=== PATIENT | female | born 1960 | race Hispanic/Latino ===

== ENCOUNTER → 2018-07-18 09:58 | Outpatient (CLI) | payer MEDICAID, SELFPAY ==
--- NOTE | 2018-07-18 | DI.RAD.S_ITS ---
PROCEDURE: XR CHEST 2V INDICATIONS: COUGH TECHNIQUE: 2 views of the chest were acquired. COMPARISON: [facility], , CHEST 2 VIEW, 01/04/2010, 9:20. FINDINGS: Surgical changes and devices: None. Lungs and pleura: Lungs are clear. No pleural effusions or pneumothorax. Mediastinum: Mediastinal contours are normal. Heart size is normal. Bones and chest wall: No suspicious bony abnormalities. Soft tissues appear unremarkable. IMPRESSION: No acute cardiopulmonary disease. Dictated by: Shona Balbuena M.D. on 07/18/2018 at 10:18 Approved by: Shona Balbuena M.D. on 07/18/2018 at 10:18
== END ==
PROVIDERS: PCP Family Medicine; Visit Provider Family Medicine
DX: R05 Cough (principal)
CPT/HCPCS: 71046

== ENCOUNTER 2022-07-31 14:25 | Emergency (ER) | payer MEDICAID, SELFPAY ==
[2022-07-31 14:30] VITALS: BP 198/95; PULSE 77; RESP 18; TEMP 37.2; O2SAT 99; BMI 31.1
--- NOTE | 2022-07-31 15:34 | ED_ITS ---
HPI - Animal Bite <Jasmin Torres PA-C - Last Filed: 07/31/22 16:08> General Chief Complaint: Animal Bite Stated Complaint: bit by a dog in the face Time Seen by Provider: 07/31/22 14:33 Source: patient Mode of arrival: Ambulatory History of Present Illness HPI narrative: This is a 62-year-old female who presents with concern for a dog bite to her face. Patient states that she was at a friend's place and her friend has a very large dog that comes up nearly to her waist, she had met the dog last night and had no issues with it today it was in a sling her back and she turned around and bent down towards it and it suddenly reached up and bit her face. She states it has very large jaws and enclosed her face 1 time, she had quite a bit of bleeding and someone ran next door to someone who has an off-duty EMT who came over and bandaged her face with pressure dressing before she came to the emergency department. Patient states she has some difficulty breathing out of her left nostril and that her face is painful, she denies any other injuries besides the dog bite or any other concerns today. She believes her last tetanus was in the year to prior to COVID she is not sure exactly when. She does state that the dog according to the medical billing and coding specialist is fully vaccinated. She says that the dog stayed home with the medical billing and coding specialist they did not call the police. Related Data Home Medications Medication Instructions Recorded Confirmed [TRAZODONE] ##0 10/04/10 estradiol 1 mg tablet (Estrace) 1 mg PO Q DAY ##0 10/04/10 Previous Rx's Medication Instructions Recorded amoxicillin 500 mg-potassium 1 tab PO Q8H dog bite infection 07/31/22 clavulanate 125 mg tablet prophylaxis 7 days #21 tabs (Augmentin) Allergies Allergy/AdvReac Type Severity Reaction Status Date / Time Sulfa (Sulfonamide Allergy Intermediate Rash Verified 07/31/22 14:38 Antibiotics) Review of Systems <Jasmin Torres PA-C - Last Filed: 07/31/22 16:08> Review of Systems Narrative: See HPI Patient History <Jasmin Torres PA-C - Last Filed: 07/31/22 16:08> Social History Smoking Status: Never smoker Smoking Status: Never smoker Substance Use Type: does not use Exam <Jasmin Torres PA-C - Last Filed: 07/31/22 16:08> Narrative Exam Narrative: GENERAL: [62] year old patient appears stated age. Obese patient, in mild distress, anxious and uncomfortable appearing. HEAD: There is a deep irregular wound to the right cheek over/just inferior to the zygoma that is gapping open bleeding is not controlled it is leaking dark red blood persistently unless direct pressure is held. Otherwise Atraumatic. Normocephalic. EYES: Pupils equal round and reactive. Extraocular motions intact. No scleral icterus. No injection or drainage. ENT: Nose with intermittent trickling dark red bleeding from left Sánchez, without purulent drainage. There is a small approximately 4 mm shallow appearing puncture on the lateral aspect of the left ala of the Nare. There is a septal hematoma in the left Sánchez anteriorly at the base of the nail that is not completely occluding and patient is able to breathe effectively with this present. There is a superficial appearing laceration with bleeding controlled without direct pressure just superior and anterior to the nasal hematoma. There is a small amount of dried blood at the base of the right anterior naris without continued bleeding. Throat without erythema, tonsillar hypertrophy or exudate. Airway patent. There is no oral trauma noted. NECK: Trachea midline. Non tender CARDIOVASCULAR: Regular rate and rhythm without murmurs, gallops, or rubs. RESPIRATORY: Clear to auscultation. Breath sounds equal bilaterally. No wheezes, rales, or rhonchi. EXTREMITIES: No edema or joint tenderness. BACK: Nontender without deformity or crepitance. No flank tenderness. NEURO: AOx3. Cranial nerves intact 2 through 12 facial sensation is intact bilaterally. SKIN: See ENT and head. No rash or erythema of visible areas Initial Vital Signs Initial Vital Signs: Vital Signs Temperature 98.9 F 07/31/22 14:30 Pulse Rate 77 07/31/22 14:30 Respiratory Rate 18 07/31/22 14:30 Blood Pressure 198/95 H 07/31/22 14:30 Pulse Oximetry 99 07/31/22 14:30 Oxygen Delivery Method Room Air 07/31/22 14:30 <Michael Barrientos DO - Last Filed: 07/31/22 16:10> Initial Vital Signs Initial Vital Signs: Vital Signs Temperature 98.9 F 07/31/22 14:30 Pulse Rate 77 07/31/22 14:30 Respiratory Rate 18 07/31/22 14:30 Blood Pressure 198/95 H 07/31/22 14:30 Pulse Oximetry 99 07/31/22 14:30 Oxygen Delivery Method Room Air 07/31/22 14:30 Procedures <Jasmin Torres PA-C - Last Filed: 07/31/22 16:08> Laceration Repair Laceration 1: Time of procedure: 15:45 Site: face Side (If applicable): right Size (cm): 3 Description: flap, irregular and contaminated Depth: simple, single layer Local Anesthetic: lidocaine 2% and with epi Amount of anesthesia used (mL): 3 Pre-repair: wound explored, irrigated extensively and cleansed with chlorhexadine (clorhexidine scrub and washout) Skin layer closed with: nylon Skin layer suture size: 6-0 Number of sutures: 7 Subcutaneous layer closed with: vicryl Subcutaneous layer suture size: 5-0 Number of sutures: 4 Technique: simple, interrupted Course <Jasmin Torres PA-C - Last Filed: 07/31/22 16:08> Orders Ordered: Discontinued Medications Acetaminophen (Acetaminophen 325 Mg Tablet) 975 mg PO NOW ONE Stop: 07/31/22 15:39 Last Admin: 07/31/22 15:43 Dose: 975 mg Documented By: TIMBO Bacitracin (Bacitracin Oint 0.9 Gm Pckt) 1 applic TOP NOW ONE Stop: 07/31/22 15:58 Last Admin: 07/31/22 16:05 Dose: 1 applic Documented By: TIMBO Diphtheria/Tetanus/Acell Pertussis (Tet,Diph,Pertuss(Acell),Vac/Pf 0.5 Ml Syringe) 0.5 ml IM .ONCE ONE Stop: 07/31/22 15:34 Last Admin: 07/31/22 15:36 Dose: 0.5 ml Documented By: LOGAN Ibuprofen (Ibuprofen 400 Mg Tablet) 400 mg PO NOW ONE Stop: 07/31/22 15:39 Last Admin: 07/31/22 15:44 Dose: 400 mg Documented By: TIMBO Lidocaine/Epinephrine (Lidocaine 2% W/Epi Inj) 20 ml INJ INTRA-OP ONE Stop: 07/31/22 15:48 Last Admin: 07/31/22 15:48 Dose: Not Given Documented By: LOGAN Oxymetazoline HCl (Oxymetazoline Nasal [place] 30 Ml) 2 sprays NASAL NOW ONE Stop: 07/31/22 15:08 Last Admin: 07/31/22 15:37 Dose: 1 sprays Documented By: LOGAN Vital Signs Vital signs: Vital Signs - 8 hr 07/31/22 14:30 07/31/22 15:47 Temperature 98.9 F Pulse Rate 77 75 Respiratory Rate 18 16 Blood Pressure 198/95 H 189/86 H Pulse Oximetry 99 100 Oxygen Delivery Method Room Air <Michael Barrientos, DO - Last Filed: 07/31/22 16:10> Orders Ordered: Discontinued Medications Acetaminophen (Acetaminophen 325 Mg Tablet) 975 mg PO NOW ONE Stop: 07/31/22 15:39 Last Admin: 07/31/22 15:43 Dose: 975 mg Documented By: TIMBO Bacitracin (Bacitracin Oint 0.9 Gm Pckt) 1 applic TOP NOW ONE Stop: 07/31/22 15:58 Last Admin: 07/31/22 16:05 Dose: 1 applic Documented By: TIMBO Diphtheria/Tetanus/Acell Pertussis (Tet,Diph,Pertuss(Acell),Vac/Pf 0.5 Ml Syringe) 0.5 ml IM .ONCE ONE Stop: 07/31/22 15:34 Last Admin: 07/31/22 15:36 Dose: 0.5 ml Documented By: LOGAN Ibuprofen (Ibuprofen 400 Mg Tablet) 400 mg PO NOW ONE Stop: 07/31/22 15:39 Last Admin: 07/31/22 15:44 Dose: 400 mg Documented By: TIMBO Lidocaine/Epinephrine (Lidocaine 2% W/Epi Inj) 20 ml INJ INTRA-OP ONE Stop: 07/31/22 15:48 Last Admin: 07/31/22 15:48 Dose: Not Given Documented By: LOGAN Oxymetazoline HCl (Oxymetazoline Nasal [place] 30 Ml) 2 sprays NASAL NOW ONE Stop: 07/31/22 15:08 Last Admin: 07/31/22 15:37 Dose: 1 sprays Documented By: LOGAN Vital Signs Vital signs: Vital Signs - 8 hr 07/31/22 14:30 07/31/22 15:47 Temperature 98.9 F Pulse Rate 77 75 Respiratory Rate 18 16 Blood Pressure 198/95 H 189/86 H Pulse Oximetry 99 100 Oxygen Delivery Method Room Air MDM - Animal Bite <Jasmin Torres PA-C - Last Filed: 07/31/22 16:08> Differential Diagnosis Differential diagnosis: Likely dog bite Treatment and disposition Shared decision making:: Shared decision-making was used in determining patient's plan of care in the emergency department plan for outpatient follow- up. MDM Narrative Medical decision making narrative: Is a previously healthy 62-year-old woman who presents with concern for dog bite to her face sustained within the last 45 minutes by a friend's dog who is vaccinated. With removal of bandage placed by a bystander EMT patient does have persistent venous bleeding from the right cheek and wound is repaired as above in procedures with good hemostasis control with internal sutures and external repair. Patient does also have a nasal septal hematoma and did receive 2 sprays of Afrin during laceration repair due to intermittent mild epistaxis. Attending physician did also examined the patient specifically septal hematoma and we are in agreement that sutures would not be of value in the very superficial laceration adjacent to the hematoma. Given that patient's laceration is on her face she is also advised that she is certainly welcome to seek further evaluation or repair with Plastic surgery. Patient is sent home with Afrin and advised that she can use this if she is unable to control bleeding with 5 minutes of direct pressure over the area. She is advised to follow up closely with her primary care provider, she is placed on Augmentin for prophylaxis for 7 day course. Animal bite reporting paperwork was completed and faxed to the health department. Pt Advised regarding monitoring for signs of infection and when to have her sutures removed. Return precautions provided, follow-up plan discussed, all questions answered. Discharge Plan Departure Patient Disposition: Home Clinical Impression: Open wound of face due to dog bite, Hematoma of nasal septum Instructions: DI for Dog Bite Activity Restrictions/Additional Instructions: *You have been diagnosed with [dog bite to your face, septal (nasal) hematoma] *What to do: *Please continue to take your regular medications as directed. [X ] New medication prescriptions sent to your pharmacy: [Augmentin 7 days] [ ] New medication written as a paper prescription [ ] No new medications given *Please follow up with your primary care provider in 2-3 days, call for an appointment. Let them know you were seen in the Emergency Department and that we ask that you be seen in follow up. We will electronically transmit a record of today's note if your PCP is in our system. Because of high risk of infection as we discussed I did prescribe antibiotics for you I would like you to take these for the full course I have prescribed 7 days of antibiotics. Of course if you do have concern for developing infection please do not hesitate to seek re- evaluation immediately, otherwise you can have your stitches removed in 5-8 days, because we did place some internal absorbable sutures it may be better to wait for 6 or 7 days although a few leave her stitches in for a longer. You may have an increased risk of scarring. You have 7 external sutures that would do need to be removed you can have this done at your regular doctors office an urgent care or you can come back to the emergency department if needed. Regarding the inflammation and swollen tissue in your nose it is important that you do not blow your nose for at least the next 24 hours longer if possible, if you do develop a nosebleed that persists for more than it about 5 minutes with holding direct pressure you can use the Afrin nasal spray which should help to stop the bleeding. The swelling and inflammation here should improve over time however I would like her to follow up with your primary care provider for a recheck and to take another look at this in the next 5-10 days. *If you do not have a primary care provider please contact the [facility] Resource line at [phone]. They will ask some questions about your medical history and help get you set up with a doctor in the community. *Return to Emergency Department if you should have any new, worsening or concerning symptoms, such as [fever greater than 101 F, shaking chills, worsening pain, persistent vomiting or other bothersome symptoms] Prescriptions: New amoxicillin-pot clavulanate [Augmentin] 500-125 mg tablet 1 tab PO Q8H 7 Days Qty: 21 0RF No Action estradiol [Estrace] 1 MG tablet 1 mg PO Q DAY Qty: 0 [TRAZODONE] Qty: 0 Referrals: Sabina Mitchell MD [Primary Care Provider] - Stand Alone Forms: Patient Portal/API <Michael Barrientos DO - Last Filed: 07/31/22 16:10> Cosign ED Attending Cosignature Attestation: Dr Barrientos Co-Sign Statement: I was available for consultation during this patient's emergency department visit. This chart is signed by myself for administrative purposes only. I did not have direct contact with this patient during this visit. They were seen independently by the APC.
[2022-07-31] MEDS: TET,DIPH,PERTUSS(ACELL),VAC/PF 0.5 ML SYRINGE IM (15:36)
[2022-07-31] MEDS: LIDOCAINE 2% W/EPI INJ 20 ML (15:37)
[2022-07-31] MEDS: OXYMETAZOLINE NASAL SPRAY 30 ML 2 SPRAYS NASAL (15:37)
[2022-07-31] MEDS: ACETAMINOPHEN 325 MG TABLET 975 MG PO (15:43)
[2022-07-31] MEDS: IBUPROFEN 400 MG TABLET PO (15:44)
[2022-07-31 15:47] VITALS: BP 189/86; PULSE 75; RESP 16; O2SAT 100
[2022-07-31] MEDS: BACITRACIN OINT 0.9 GM PCKT 1 APPLIC TOP (16:05)
== END 2022-07-31 16:10 | disposition home or self-care (01) ==
LOC: ED 15:58
PROVIDERS: Emergency Provider Student in an Organized Health Care Education/Training Program; PCP Family Medicine
DX: S01.451A Open bite of right cheek and temporomandibular area, initial encounter (principal); W54.0XXA Bitten by dog, initial encounter; S01.23XA Puncture wound without foreign body of nose, initial encounter; Z23 Encounter for immunization
CPT/HCPCS: 12013; 90471; 99283; 90715

== ENCOUNTER 2024-01-15 13:45 | Outpatient (RCR) | payer MEDICAID, SELFPAY ==
--- NOTE | 2023-12-07 15:08 | ST.OPPOC ---
Physical, Occupational & Speech Therapy At [facility] Visit Care Team Role Provider Type Sabina Mitchell MD Family Provider Non-Staff Primary Care Provider Address: [address], [place], [address] Michael Hopper MD Attending Provider Physician Referring Provider Address: [place], [address] Speech Pathology Plan of Care Plan of Care Dates 12/07/23-03/08/[address] Michael Hopper ([facility]) Patient History Radha Morillo is a 63-year-old female referred to this clinic for an evaluation of voice/resonance at the referral of Dr. Michael Hopper (ENT). Pt suffered a dog bite to the face on 07/31/22., and had stitches on her right cheek. Per ENT note, she developed a hematoma along her left nasal sill which turned into a scar band which was narrowing her nasal vestibule. Pt received an operation from Dr. Hopper on 03/17/23 for repair of left nasal vestibule stenosis using a small skin graft to the sill of the nose to the right side. Since surgery, she began experiencing throat dryness and hoarseness as well as continued feeling of obstruction in the left nasal passage. She states that dryness has mostly resolved but hoarseness continues. Recent scope by ENT showed no abnormalities of the larynx/pharynx. She reports no history of smoking and no history of s/sx GERD/heartburn. She does have allergies and reports post-nasal drip, for which she takes antihistamines and uses Flonase. She does not feel as though she feels much post nasal drip, but does frequently report feeling a tickle in her throat which causes her to cough/ throat clear very frequently, especially when she tries to talk/produce voicing. She states that she used to enjoy singing recreationally but no longer does so. She no longer tries to sing hymns at [employer]. 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 She states this has become difficult because her voice issue causes her to cough when she tries to talk. Sometimes, people will ask if she is sick due to her coughing fits and hoarse voice. Pt believes that all of her issues started when she was intubated for surgery. She feels it is possible that intubation injured her larynx in some way, as all of her voice issues began after extubation from surgery. However, scope from recent ENT visit was unremarkable and shows no lesions. Voice/Resonance Findings Moderate Impairment Voice/Resonance Assessment Pt presents with moderate dysphonia characterized by hoarseness, low pitch, and frequent coughing/throat clearing during voicing . Based on pt's history and description of symptoms, a number of possible causes may be related to pt's symptoms, which are considered below. Each theory is complicated by the fact that pt's most recent scope showed no evidence of laryngeal damage, tension, or irritation. 1. Cycle of laryngeal irritation: Pt may have experienced initial irritation of the larynx with intubation during surgery which initiated habit of coughing/throat clearing. Subsequently , continued coughing/throat clearing may have furthered laryngeal irritation due to ongoing glottal attack, creating a cycle of coughing and hoarseness. 2. Post nasal drip: Pt may be experiencing ongoing post nasal drip due to nasal irritation 2/ nasal surgery, which is causing laryngeal irritation and cough response. However, pt is currently medically managing post nasal drip with antihistamines and Flonase. 3. GERD/Reflux and/or Asthma: Laryngeal irritation may be due to reflux, though this is unlikely given lack of pt history of symptoms. CONSTRUCTION TECH discussed with the pt that she could talk to her doctor about trialing a course of a PPI to see if there was an improvement in symptoms. Pt is hesitant to add new medication but will consider this. Additionally, pt presents with mild inhalatory stridor. CONSTRUCTION TECH recommends considering assessment by a surg tech. It seems unlikely that pulmonological causes would be the root of pt's current symptoms, but worth ruling out. 4. Remaining laryngeal injury: It is possible that there is a remaining lesion/irritation from intubation which has not healed. This was not supported by recent imaging. CONSTRUCTION TECH suggests repeat scope for a second opinion of symptoms do not improve with CONSTRUCTION TECH intervention. Based on the above possible causes of pt's symptoms, CONSTRUCTION TECH intervention will likely only be effective if symptoms are caused by a cycle of laryngeal irritation. CONSTRUCTION TECH suggests a two- pronged intervention approach focusing on 1) behavioral modification to reduce irritating behaviors of coughing/throat clearing and replace with, for example, swallowing, and 2) resonant voice therapy to shift tone focus and decrease hard glottal onsets with the goal of reducing hoarseness and laryngeal irritation with voicing. If these interventions do not lead to a decrease in symptoms, CONSTRUCTION TECH will suggest a repeat scope for a second opinion and/or referrals for GI/surg tech assessment and intervention. Voice/Resonance Prognosis Fair Voice/Resonance Yes Recommendations Voice/Resonance Treatment Weekly Frequency Short Term Goals 1. Pt will benefit from education in alternatives to hard cough/throat clear to reduce laryngeal irritation. 2. Pt will benefit from education in mechanics of voicing and tone focus in order to assist in producing resonant voice. 3. Pt will complete resonant voice exercises with 80% accuracy independently. Half-Way Goals 1. Pt will will demonstrate healthy vocal quality in the context of her daily work and social activities by producing continous voicing without coughing/throat clearing for at least three continous 10-minute intervals throughout the day. Comment: Electronically Signed by: RONALDO Roach 12/07/23 2008 If you are in agreement with this Plan of Care, please return a signed and dated copy. I have reviewed this Plan of Care and certify that the skilled therapy services above are required to meet the patient?s needs. Physician Signature Date Printed Name and Credentials Clinical Instructor Signature Printed Name and Credentials
--- NOTE | 2023-12-07 15:08 | ST.OPIE ---
Visit Care Team Role Provider Type Sabina Mitchell MD Family Provider Non-Staff Primary Care Provider Specialty: Family Practice Address: [id number] [place] [address], [id number] Email: Michael Hopper MD Attending Provider Physician Referring Provider Specialty: Otolaryngology (ENT) Address: [facility] [place], [address] Email: [email or web address] Speech-Language Pathology Initial Evaluation ELECTRODE CLEANER Voice Resonance Evaluation Start: 12/07/23 11:24 Freq: Status: Active Protocol: Document 12/07/23 11:24 CG (Rec: 12/07/23 13:33 CG [id number]) Voice and Resonance Assessment Session Time Visit Start Time 11:30 Visit Stop Time 12:20 Total Visit Minutes 50 Visit Information Visit Number 1 Plan of Care Dates 12/07/23-03/08/24 Insurance Information [place] (6 visits allowed incl. eval, plus 6 more w/ special approval) Next Note Type Next Note Type Treatment Note Referral Referring Physician Dr. Michael Hopper ([facility]NT ) Reason for Referral dysphonia/hoarseness Setting Setting Outpatient Care Patient History Patient History Radha Morillo is a 63-year-old female referred to this clinic for an evaluation of voice/ resonance at the referral of Dr. Michael Hopper (ENT). Pt suffered a dog bite to the face on 07/31/22., and had stitches on her right cheek. Per ENT note, she developed a hematoma along her left nasal sill which turned into a scar band which was narrowing her nasal vestibule. Pt received an operation from Dr. Hopper on 03/17/23 for repair of left nasal vestibule stenosis using a small skin graft to the sill of the nose to the right side. Since surgery, she began experiencing throat dryness and hoarseness as well as continued feeling of obstruction in the left nasal passage. She states that dryness has mostly resolved but hoarseness continues. Recent scope by ENT showed no abnormalities of the larynx/ pharynx. She reports no history of smoking and no history of s/sx GERD/heartburn. She does have allergies and reports post-nasal drip, for which she takes antihistamines and uses Flonase. She does not feel as though she feels much post nasal drip, but does frequently report feeling a tickle in her throat which causes her to cough/throat clear very frequently, especially when she tries to talk/produce voicing. She states that she used to enjoy singing recreationally but no longer does so. She no longer tries to sing hymns at [employer]. 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 She states this has become difficult because her voice issue causes her to cough when she tries to talk. Sometimes , people will ask if she is sick due to her coughing fits and hoarse voice. Pt believes that all of her issues started when she was intubated for surgery. She feels it is possible that intubation injured her larynx in some way, as all of her voice issues began after extubation from surgery. However, scope from recent ENT visit was unremarkable and shows no lesions. 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 Oral-Motor Eval Completed No Oral-Motor Assessment Oral motor structure and function appear WFL. Pt reports no difficulty with chewing, swallow, speech ( other than voice change). Subjective Subjective Pt reports she has no pain with voicing, but is frustrated by ongoing hoarseness and coughing with voicing. Throat dryness has mostly resolved, but hoarseness and cough remain. She reports that her voice tends to get more hoarse/ aphonic over time throughout the course of the day. - Laryngeal Performance S/Z Ratio S/Z Ratio 1.21 Functional for Speech Yes Reduced Laryngeal Function Relative to No Respiration CAPE-V Overall Severity 50 Roughness 60 Breathiness 15 Strain 57 Pitch 55 Loudness 20 Normal Resonance? No: Mildly nasal Additional Features Other Other Features Observed Hoarse voice; wet cough/throat clear frequently observed Maximum Phonation Time MPT Norms: Women (15-25) Men (25-35) Loudness (50-60 dB); Speaking Rate: Oral Reading of Sentences (190 Words Per Minute); Oral Reading of Paragraphs (160-170 WPM); Speaking Rate in Conversation (150-250 WPM) Maximum Phonation Time 9s Maximum Phonation Time Reduced Maximum Phonation Time Comments Pt struggled with continuous phonation as it tended to trigger a cough/throat clear response. Pitch was low and voice was qualitatively hoarse . Voice Pitch Range Norms: Women (100-300 Hz) Men (70-250 Hz) Fundamental Frequency Norms: Women (Mean: 225 Hz; Range: 155-334 Hz) Men ( Mean: 128 Hz; Range: 85-196 Hz) Voice Pitch Moderately Low Voice Loudness Mildly Soft/Quiet Voice Phonatory-based Quality Hoarse Resonance Nasal Resonance Hypernasal Oral Resonance Normal Other Observations Throat Clearing,Disordered Intonation Therapeutic Techniques Therapy Tactics Shifting Tone Focus,Easy Onset Other Tactics Therapeutic techniques will include a twofold approach of 1) behavioral modification for coughing/throat clearing with voicing and 2) resonant voice therapy to shift tone focus and decrease hard glottal onsets with the goal of reducing hoarseness and laryngeal irritation with voicing. Findings Findings Moderate Impairment Observations Pt presents with moderate dysphonia characterized by hoarseness, low pitch, and frequent coughing/throat clearing during voicing. Voice/Resonance Assessment Assessment Pt presents with moderate dysphonia characterized by hoarseness, low pitch, and frequent coughing/throat clearing during voicing. Based on pt's history and description of symptoms, a number of possible causes may be related to pt's symptoms, which are considered below. Each theory is complicated by the fact that pt's most recent scope showed no evidence of laryngeal damage, tension, or irritation. 1. Cycle of laryngeal irritation: Pt may have experienced initial irritation of the larynx with intubation during surgery which initiated habit of coughing/ throat clearing. Subsequently , continued coughing/throat clearing may have furthered laryngeal irritation due to ongoing glottal attack, creating a cycle of coughing and hoarseness. 2. Post nasal drip: Pt may be experiencing ongoing post nasal drip due to nasal irritation 2/ nasal surgery, which is causing laryngeal irritation and cough response. However, pt is currently medically managing post nasal drip with antihistamines and Flonase. 3. GERD/Reflux and/or Asthma: Laryngeal irritation may be due to reflux, though this is unlikely given lack of pt history of symptoms. ELECTRODE CLEANER discussed with the pt that she could talk to her doctor about trialing a course of a PPI to see if there was an improvement in symptoms. Pt is hesitant to add new medication but will consider this. Additionally, pt presents with mild inhalatory stridor. ELECTRODE CLEANER recommends considering assessment by a mental retardation aide. It seems unlikely that pulmonological causes would be the root of pt 's current symptoms, but worth ruling out. 4. Remaining laryngeal injury: It is possible that there is a remaining lesion/irritation from intubation which has not healed. This was not supported by recent imaging. ELECTRODE CLEANER suggests repeat scope for a second opinion of symptoms do not improve with ELECTRODE CLEANER intervention. Based on the above possible causes of pt's symptoms, ELECTRODE CLEANER intervention will likely only be effective if symptoms are caused by a cycle of laryngeal irritation. ELECTRODE CLEANER suggests a two-pronged intervention approach focusing on 1) behavioral modification to reduce irritating behaviors of coughing/throat clearing and replace with, for example, swallowing, and 2) resonant voice therapy to shift tone focus and decrease hard glottal onsets with the goal of reducing hoarseness and laryngeal irritation with voicing. If these interventions do not lead to a decrease in symptoms, ELECTRODE CLEANER will suggest a repeat scope for a second opinion and/or referrals for GI/mental retardation aide assessment and intervention. Prognosis Rehabilitation Potential Fair - Recommendations Treatment Recommended Yes Treatment Frequency/Duration Weekly Placement Recommendation Home Short Term Goals 1. Pt will benefit from education in alternatives to hard cough/throat clear to reduce laryngeal irritation. 2. Pt will benefit from education in mechanics of voicing and tone focus in order to assist in producing resonant voice. 3. Pt will complete resonant voice exercises with 80% accuracy independently. Nursing Home Goals 1. Pt will will demonstrate healthy vocal quality in the context of her daily work and social activities by producing continous voicing without coughing/throat clearing for at least three continous 10- minute intervals throughout the day. Referrals Referrals ENT,Pulmonology Patient/Caregiver Education Patient/Family Education Described results of evaluation,Patient Understanding,Patient Needs More Info
--- NOTE | 2023-12-12 11:55 | ST.OPTN ---
Visit Care Team Role Provider Type Sabina Mitchell MD Family Provider Non-Staff Primary Care Provider Address: [id number] [place] [address], [place], [address] Michael Hopper MD Attending Provider Physician Referring Provider Address: [place], [address] SLAT BASKET MAKER HELPER Treatment Note SLAT BASKET MAKER HELPER Treatment Note Start: 12/12/23 11:42 Freq: Status: Active Protocol: Document 12/12/23 11:42 CG (Rec: 12/12/23 11:55 CG [id number]) Speech Pathology Treatment Note Session Time Visit Start Time 10:50 Visit Stop Time 11:30 Total Visit Minutes 40 Visit Information Visit Number 1 Plan of Care Dates 12/07/23-03/08/24 Next Note Type Next Note Type Treatment Note General Information Patient History Radha Morillo is a 63-year-old female referred to this clinic for an evaluation of voice/ resonance at the referral of Dr. Michael Hopper (ENT). Pt suffered a dog bite to the face on 07/31/22., and had stitches on her right cheek. Per ENT note, she developed a hematoma along her left nasal sill which turned into a scar band which was narrowing her nasal vestibule. Pt received an operation from Dr. Hopper on 03/17/23 for repair of left nasal vestibule stenosis using a small skin graft to the sill of the nose to the right side. Since surgery, she began experiencing throat dryness and hoarseness as well as continued feeling of obstruction in the left nasal passage. She states that dryness has mostly resolved but hoarseness continues. Recent scope by ENT showed no abnormalities of the larynx/ pharynx. She reports no history of smoking and no history of s/sx GERD/heartburn. She does have allergies and reports post-nasal drip, for which she takes antihistamines and uses Flonase. She does not feel as though she feels much post nasal drip, but does frequently report feeling a tickle in her throat which causes her to cough/throat clear very frequently, especially when she tries to talk/produce voicing. She states that she used to enjoy singing recreationally but no longer does so. She no longer tries to sing hymns at [employer]. 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 She states this has become difficult because her voice issue causes her to cough when she tries to talk. Sometimes , people will ask if she is sick due to her coughing fits and hoarse voice. Pt believes that all of her issues started when she was intubated for surgery. She feels it is possible that intubation injured her larynx in some way, as all of her voice issues began after extubation from surgery. However, scope from recent ENT visit was unremarkable and shows no lesions. Objective Short Term Goals 1. Pt will benefit from education in alternatives to hard cough/throat clear to reduce laryngeal irritation. 2. Pt will benefit from education in mechanics of voicing and tone focus in order to assist in producing resonant voice. 3. Pt will complete resonant voice exercises with 80% accuracy independently. Retirement Goals 1. Pt will will demonstrate healthy vocal quality in the context of her daily work and social activities by producing continous voicing without coughing/throat clearing for at least three continous 10- minute intervals throughout the day. Treatment Activities Discussion of alternatives to hard cough/throat clear with SLAT BASKET MAKER HELPER demonstration. Introduction to resonant voice techniques including brief trials of /m/ in isolation on breath out, trials of /m/ initial words while maintaining oral/nasal resonance, trials of /m/ sentences while maintaining oral/nasal resonance. Introduced straw phonation with /u/ vowel. Shifted straw phonation to Wh--initial functional phrases (oooh-what would you like to do today?) Assessment Patient Response to Treatment Excellent Rehab Potential Good Impairments Identified Voice Progress Towards Goals Excellent Progress Assessment of Overall Progress Improving Assessment of Improvement Pt states she has been trying to reduce coughing/throat clearing with hard glottal attack and working towards replacing it with hard swallow or gentle throat clear, though this has been difficult . Pt was able to complete resonance exercises with 80% accuracy given min cues from SLAT BASKET MAKER HELPER, including reminders to drop shoulders to decrease neck tension/throat tension. Pt was able to complete straw phonation with approximately 70% accuracy during trials. During resonant voice and straw phonation, she was not observed to have any coughing attacks or loss of voicing. This indicates that these techniques may be successful in reducing the pt's overall laryngeal irritation. Pt agreeable to home exercises of practicing resonant sentences (loaded with /m/ initial words) and practicing straw phonation with function wh- phrases. Reviewed with Patient Goals,Home Exercise Program Patient/Caregiver Understanding Excellent Plan Amount of Therapy Recommended 2-3 Months Frequency of Treatment Once a Week Length of Session 30 Minutes Therapeutic Contents Voice Training Provided Patient/Caregiver Instruction Home Exercise Program
--- NOTE | 2023-12-18 16:04 | ST.OPTN ---
Visit Care Team Role Provider Type Sabina Mitchell MD Family Provider Non-Staff Primary Care Provider Address: [id number] [place] [address], [place], [address] Michael Hopper MD Attending Provider Physician Referring Provider Address: [place], [address] PHOTOGRAPHER STILL Treatment Note PHOTOGRAPHER STILL Treatment Note Start: 12/12/23 11:42 Freq: Status: Active Protocol: Document 12/18/23 16:00 CG (Rec: 12/18/23 16:04 CG [id number]) Speech Pathology Treatment Note Session Time Visit Start Time 13:45 Visit Stop Time 14:25 Total Visit Minutes 40 Visit Information Visit Number 2 Plan of Care Dates 12/07/23-03/08/24 Next Note Type Next Note Type Treatment Note General Information Patient History Radha Morillo is a 63-year-old female referred to this clinic for an evaluation of voice/ resonance at the referral of Dr. Michael Hopper (ENT). Pt suffered a dog bite to the face on 07/31/22., and had stitches on her right cheek. Per ENT note, she developed a hematoma along her left nasal sill which turned into a scar band which was narrowing her nasal vestibule. Pt received an operation from Dr. Hopper on 03/17/23 for repair of left nasal vestibule stenosis using a small skin graft to the sill of the nose to the right side. Since surgery, she began experiencing throat dryness and hoarseness as well as continued feeling of obstruction in the left nasal passage. She states that dryness has mostly resolved but hoarseness continues. Recent scope by ENT showed no abnormalities of the larynx/ pharynx. She reports no history of smoking and no history of s/sx GERD/heartburn. She does have allergies and reports post-nasal drip, for which she takes antihistamines and uses Flonase. She does not feel as though she feels much post nasal drip, but does frequently report feeling a tickle in her throat which causes her to cough/throat clear very frequently, especially when she tries to talk/produce voicing. She states that she used to enjoy singing recreationally but no longer does so. She no longer tries to sing hymns at [employer]. 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 She states this has become difficult because her voice issue causes her to cough when she tries to talk. Sometimes , people will ask if she is sick due to her coughing fits and hoarse voice. Pt believes that all of her issues started when she was intubated for surgery. She feels it is possible that intubation injured her larynx in some way, as all of her voice issues began after extubation from surgery. However, scope from recent ENT visit was unremarkable and shows no lesions. Objective Short Term Goals 1. Pt will benefit from education in alternatives to hard cough/throat clear to reduce laryngeal irritation. 2. Pt will benefit from education in mechanics of voicing and tone focus in order to assist in producing resonant voice. 3. Pt will complete resonant voice exercises with 80% accuracy independently. Prison Goals 1. Pt will will demonstrate healthy vocal quality in the context of her daily work and social activities by producing continous voicing without coughing/throat clearing for at least three continous 10- minute intervals throughout the day. Treatment Activities Discussion of progress and current symptoms. Continued training in resonant voice strategies to produce functional phrases related to occupation. Training in use of visualization for full diaphragmatic breath. Introduced SOVT exercises. Assessment Patient Response to Treatment Excellent Rehab Potential Good Impairments Identified Voice Progress Towards Goals Excellent Progress Assessment of Overall Progress Improving Assessment of Improvement Pt states she has been continuing to attempt to decrease hard cough and feels this is getting slightly easier, though she does still have occasional coughing fits. Throughout the treatment session, pt only had one significant coughing episode, which is a significant decrease from previous sessions. Pt was able to complete resonance exercises with 80% accuracy given min cues from PHOTOGRAPHER STILL. Pt was agreeable to instruction in SOVT exercises, though time did not allow for pt to complete trials today. Will review next session. Overall, pt reports that her coughing has decreased. Vocal quality sounds subjectively less hoarse to this PHOTOGRAPHER STILL. Reviewed with Patient Goals,Home Exercise Program Patient/Caregiver Understanding Excellent Plan Amount of Therapy Recommended 2-3 Months Frequency of Treatment Once a Week Length of Session 30 Minutes Therapeutic Contents Voice Training Provided Patient/Caregiver Instruction Home Exercise Program
--- NOTE | 2023-12-26 16:13 | ST.OPTN ---
Visit Care Team Role Provider Type Sabina Mitchell MD Family Provider Non-Staff Primary Care Provider Address: [id number] [place] [address], [place], [address] Michael Hopper MD Attending Provider Physician Referring Provider Address: [place], [address] PATIENT DAY COORDINATOR Treatment Note PATIENT DAY COORDINATOR Treatment Note Start: 12/12/23 11:42 Freq: Status: Active Protocol: Document 12/26/23 16:08 CG (Rec: 12/26/23 16:13 CG [id number]) Speech Pathology Treatment Note Session Time Visit Start Time 13:50 Visit Stop Time 14:20 Total Visit Minutes 30 Visit Information Visit Number 3 Plan of Care Dates 12/07/23-03/08/24 Next Note Type Next Note Type Treatment Note General Information Patient History Radha Morillo is a 63-year-old female referred to this clinic for an evaluation of voice/ resonance at the referral of Dr. Michael Hopper (ENT). Pt suffered a dog bite to the face on 07/31/22., and had stitches on her right cheek. Per ENT note, she developed a hematoma along her left nasal sill which turned into a scar band which was narrowing her nasal vestibule. Pt received an operation from Dr. Hopper on 03/17/23 for repair of left nasal vestibule stenosis using a small skin graft to the sill of the nose to the right side. Since surgery, she began experiencing throat dryness and hoarseness as well as continued feeling of obstruction in the left nasal passage. She states that dryness has mostly resolved but hoarseness continues. Recent scope by ENT showed no abnormalities of the larynx/ pharynx. She reports no history of smoking and no history of s/sx GERD/heartburn. She does have allergies and reports post-nasal drip, for which she takes antihistamines and uses Flonase. She does not feel as though she feels much post nasal drip, but does frequently report feeling a tickle in her throat which causes her to cough/throat clear very frequently, especially when she tries to talk/produce voicing. She states that she used to enjoy singing recreationally but no longer does so. She no longer tries to sing hymns at [employer]. 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 She states this has become difficult because her voice issue causes her to cough when she tries to talk. Sometimes , people will ask if she is sick due to her coughing fits and hoarse voice. Pt believes that all of her issues started when she was intubated for surgery. She feels it is possible that intubation injured her larynx in some way, as all of her voice issues began after extubation from surgery. However, scope from recent ENT visit was unremarkable and shows no lesions. Objective Short Term Goals 1. Pt will benefit from education in alternatives to hard cough/throat clear to reduce laryngeal irritation. 2. Pt will benefit from education in mechanics of voicing and tone focus in order to assist in producing resonant voice. 3. Pt will complete resonant voice exercises with 80% accuracy independently. Penitentiary Goals 1. Pt will will demonstrate healthy vocal quality in the context of her daily work and social activities by producing continous voicing without coughing/throat clearing for at least three continous 10- minute intervals throughout the day. Treatment Activities Discussion of progress and current symptoms. Discussed safe voice exercises for rehabilitating singing. Talked through short term and intermediate designer goals to evaluate pt progress and update plan. Assessment Patient Response to Treatment Excellent Rehab Potential Good Impairments Identified Voice Progress Towards Goals Excellent Progress Assessment of Overall Progress Improving Assessment of Improvement Pt states she has had decreased coughing fits at work, stating she only had one this morning. She feels she is usually able to go for a 10 -15 minute period of time without coughing. No significant coughing episodes noted today. Pt states she feels there has been a decrease in phlegm and irritation in her throat since starting therapy. She feels she is talking more throughout the day at work than previously. Pt has demonstrated proficiency with all resonance exercises and states no questions re HEP. She was agreeable to suggested voice exercises for singing. Plan to push next appointment out 3 weeks to monitor progress. If pt is continuing to make progress independently and no questions re exercises, PATIENT DAY COORDINATOR will d/c from voice therapy at that time. Reviewed with Patient Goals,Home Exercise Program Patient/Caregiver Understanding Excellent Plan Amount of Therapy Recommended 2-3 Months Frequency of Treatment Once a Week Length of Session 30 Minutes Therapeutic Contents Voice Training Provided Patient/Caregiver Instruction Home Exercise Program
--- NOTE | 2024-01-15 16:29 | ST.OPDS ---
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 Michael Hopper (ENT). Pt suffered a dog bite to the face on 07/31/22., and had stitches on her right cheek. Per ENT note, she developed a hematoma along her left nasal sill which turned into a scar band which was narrowing her nasal vestibule. Pt received an operation from Dr. Hopper on 03/17/23 for repair of left nasal vestibule stenosis using a small skin graft to the sill of the nose to the right side. Since surgery, she began experiencing throat dryness and hoarseness as well as continued feeling of obstruction in the left nasal passage. She states that dryness has mostly resolved but hoarseness continues. Recent scope by ENT showed no abnormalities of the larynx/ pharynx. She reports no history of smoking and no history of s/sx GERD/heartburn. She does have allergies and reports post-nasal drip, for which she takes antihistamines and uses Flonase. She does not feel as though she feels much post nasal drip, but does frequently report feeling a tickle in her throat which causes her to cough/throat clear very frequently, especially when she tries to talk/produce voicing. She states that she used to enjoy singing recreationally but no longer does so. She no longer tries to sing hymns at [employer]. 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 She states this has become difficult because her voice issue causes her to cough when she tries to talk. Sometimes , people will ask if she is sick due to her coughing fits and hoarse voice. Pt believes that all of her issues started when she was intubated for surgery. She feels it is possible that intubation injured her larynx in some way, as all of her voice issues began after extubation from surgery. However, scope from recent ENT visit was unremarkable and shows no lesions. Objective Short Term Goals 1. Pt will benefit from education in alternatives to hard cough/throat clear to reduce laryngeal irritation. 2. Pt will benefit from education in mechanics of voicing and tone focus in order to assist in producing resonant voice. 3. Pt will complete resonant voice exercises with 80% accuracy independently. Half-Way Goals 1. Pt will will demonstrate healthy vocal quality in the context of her daily work and social activities by producing continous voicing without coughing/throat clearing for at least three continous 10- minute intervals throughout the day. Treatment Activities Discussion of progress and current symptoms. Repeated non -instrumental measures of voice (s:z ratio and sustained phonation). Discussed plan to d/c as pt has met all goals. Assessment Patient Response to Treatment Excellent Rehab Potential Good Impairments Identified Voice Progress Towards Goals Excellent Progress Assessment of Overall Progress Improving Assessment of Improvement Pt states she has continues to have sustained decrease in symptoms though some mild hoarseness remains. She states symptoms flared briefly when environmental irritants were present last week and she was dx with a sinus infection , but is generally feeling bettwe and coughing far less than she was previously. S:Z ratio has decreased to 0.76, as opposed to intial ratio of 1.21 upon initial eval. This demonstrates an increase in relative laryngeal performance . Pt's maximum sustained phonation time increased from 9 seconds upon initial evaluation to 14s during today 's session, indicating a significant increase in maximum sustained phonation (a correlate of laryngeal function). Qualitatively, pt' s voice no longer presents with vocal breaks and pt is able to complete all vocal testing tasks without a coughing fit. Mild hoarseness remains, but expect this to resolve with continued adherance to HEP. Pt stated no questions with HEP. Given pt progress and meeting all goals, d/c at this time. Recommend follow with ENT again for another scope of vocal folds to ensure no polyps/nodules/hemorrhages exist. Reviewed with Patient Goals,Home Exercise Program Patient/Caregiver Understanding Excellent Plan Amount of Therapy Recommended 2-3 Months Frequency of Treatment No further therapy at this time Length of Session 30 Minutes Therapeutic Contents Voice Training Provided Patient/Caregiver Instruction Home Exercise Program
--- NOTE | 2024-02-28 09:51 | ST.OPDS ---
Visit Care Team Role Provider Type Sabina Mitchell MD Family Provider Non-Staff Primary Care Provider Address: [id number] [place] [address], [place], [address] Michael Hopper MD Attending Provider Physician Referring Provider Address: [place], [address] FUR BUYER Discharge Note FUR BUYER Discharge Note Start: 12/12/23 11:42 Freq: Status: Active Protocol: Document 02/28/24 09:46 CG (Rec: 02/28/24 09:51 CG [id number]) Speech Pathology Treatment Note Session Time Visit Start Time 13:45 Visit Stop Time 14:20 Total Visit Minutes 35 Visit Information Visit Number 4 Plan of Care Dates 12/07/23-03/08/24 Setting Treatment Setting Outpatient Care Visit Type Note Type Discharge Summary General Information Patient History Radha Morillo is a 63-year-old female referred to this clinic for an evaluation of voice/ resonance at the referral of Dr. Michael Hopper (ENT). Pt suffered a dog bite to the face on 07/31/22., and had stitches on her right cheek. Per ENT note, she developed a hematoma along her left nasal sill which turned into a scar band which was narrowing her nasal vestibule. Pt received an operation from Dr. Hopper on 03/17/23 for repair of left nasal vestibule stenosis using a small skin graft to the sill of the nose to the right side. Since surgery, she began experiencing throat dryness and hoarseness as well as continued feeling of obstruction in the left nasal passage. She states that dryness has mostly resolved but hoarseness continues. Recent scope by ENT showed no abnormalities of the larynx/ pharynx. She reports no history of smoking and no history of s/sx GERD/heartburn. She does have allergies and reports post-nasal drip, for which she takes antihistamines and uses Flonase. She does not feel as though she feels much post nasal drip, but does frequently report feeling a tickle in her throat which causes her to cough/throat clear very frequently, especially when she tries to talk/produce voicing. She states that she used to enjoy singing recreationally but no longer does so. She no longer tries to sing hymns at [employer]. 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 She states this has become difficult because her voice issue causes her to cough when she tries to talk. Sometimes , people will ask if she is sick due to her coughing fits and hoarse voice. Pt believes that all of her issues started when she was intubated for surgery. She feels it is possible that intubation injured her larynx in some way, as all of her voice issues began after extubation from surgery. However, scope from recent ENT visit was unremarkable and shows no lesions. Objective Short Term Goals 1. Pt will benefit from education in alternatives to hard cough/throat clear to reduce laryngeal irritation. 2. Pt will benefit from education in mechanics of voicing and tone focus in order to assist in producing resonant voice. 3. Pt will complete resonant voice exercises with 80% accuracy independently. Skilled Nursing Goals 1. Pt will will demonstrate healthy vocal quality in the context of her daily work and social activities by producing continous voicing without coughing/throat clearing for at least three continous 10- minute intervals throughout the day. Treatment Activities Course of treatment included training in diaphragmatic breathing to reduce clavicular and laryngeal tension, training in use of semi occluded vocal tract exercises to increase resonant voice, treaining in resonant voice therapy techniques to increase resonant voice and decrease strain, training in alternatives to hard throat clear/hard cough to reduce laryngeal trauma, counseling in vocal hygeine, and counseling re outside referrals to consider r/t voice concerns. Assessment Patient Response to Treatment Excellent Rehab Potential Good Impairments Identified Voice Progress Towards Goals Excellent Progress Assessment of Overall Progress Improving Assessment of Improvement Pt states she has continues to have sustained decrease in symptoms from initial session though some mild hoarseness remains. S:Z ratio has decreased to 0.76, as opposed to intial ratio of 1.21 upon initial eval. This demonstrates an increase in relative laryngeal performance . Pt's maximum sustained phonation time increased from 9 seconds upon initial evaluation to 14s during final session, indicating a significant increase in maximum sustained phonation (a correlate of laryngeal function). Qualitatively, pt' s voice no longer presents with vocal breaks and pt is able to complete all vocal testing tasks without a coughing fit. Mild hoarseness remains, but expect this to resolve with continued adherance to HEP. Pt is able to get through hour-long stretches of the workday without vocal breaks/coughing fits. Pt stated no questions with HEP. Given pt progress and meeting all goals, d/c at this time. Recommend follow with ENT again for another scope of vocal folds to ensure no polyps/nodules/hemorrhages exist. Reviewed with Patient Goals,Home Exercise Program Patient/Caregiver Understanding Excellent Plan Amount of Therapy Recommended 2-3 Months Frequency of Treatment Once a Week Length of Session 30 Minutes Therapeutic Contents Voice Training Provided Patient/Caregiver Instruction Home Exercise Program Therapy Recommendations Discharge to Home Exercise Program
== END 2024-03-06 11:04 | disposition home or self-care (01) ==
LOC: SP 13:45
PROVIDERS: Family Provider Family Medicine; PCP Family Medicine; Referring Provider Otolaryngology; Visit Provider Otolaryngology
DX: R49.0 Dysphonia (principal)
CPT/HCPCS: 92507; 92524